=== PATIENT | male | born 1980 | race Caucasian/White ===

== ENCOUNTER → 2018-01-26 16:21 | Outpatient (CLI) | payer OTHER, SELFPAY ==
--- NOTE | 2018-01-26 16:36 | RAD_ITS ---
STUDY: X-RAY - PELVIS REASON FOR EXAM: Male, 37 years old. Rheumatoid arthritis. TECHNIQUE: One view of the pelvis was obtained. COMPARISON: Radiograph of the pelvis and left hip dated February 24, 2012 FINDINGS: There is a non-specific bowel gas pattern. Normal visualized soft tissue structures. The sacrum is obscured by bowel gas. Normal visualized bilateral superior and inferior pubic rami. Normal pubic symphysis. Normal ischial tuberosities. Normal visualized right femoral head. Normal right acetabulum. Normal right hip joint. Normal visualized left femoral head. Normal left acetabulum. Normal left hip joint. RAD/Pelvis 1 or 2 Views IMPRESSION: No radiographic evidence of acute fracture. Electronically Signed: Park Harris MD at 9:51 EDT , Service support ,
--- NOTE | 2018-01-26 16:36 | RAD_ITS ---
STUDY: X-RAY CHEST REASON FOR EXAM: Male, 37 years old. RA. Long-term drug therapy TECHNIQUE: PA and lateral views of the chest. COMPARISON: July 08, 2014 FINDINGS: The lungs are clear and expanded. There is no demonstrated pleural abnormality. Normal size heart. Normal mediastinum and ely. Normal visualized pulmonary arteries. Normal visualized aortic arch and descending thoracic aorta. Normal visualized thoracic spine. Normal visualized ribs, clavicles, and shoulders. There is no demonstrated abnormality of the visualized soft tissue structures of the upper abdomen. RAD/Chest PA and Lateral IMPRESSION: No acute cardiopulmonary process. Electronically Signed: Pham Nassar MD at 17:32 EDT Tel , Service support ,
[2018-01-26 17:34] LABS: Absolute Lymphocyte Count 2.55 X10^3/ul (0.83-4.51); Absolute Neutrophil Count 5.9 X10^3/uL (2.0-7.7); Basophil# 0.02 X10^3/uL; Basophil% 0.2 % (0-1); Eosinophil# 0.13 X10^3/uL; Eosinophils% 1.3 % (0-5); Hematocrit 41.8 % (40-54); Hemoglobin 14.8 g/dl (13.0-16.5); Lymphocyte # 2.55 X10^3/ul (4.0); Lymphocyte % 26.2 % (19-41); Mean Corp Hgb Conc 35.4 g/gl (32-36); Mean Corpuscular Hgb 29.3 pg (27.0-32.0); Mean Corpuscular Volume 82.8 fL (80-94); Mean Platelet Vol. 10.6 fl (6.2-12.0); Monocyte# 1.14 X10^3/uL; Monocyte% 11.7 % (0-10); Neutrophil # 5.87 X10^3/uL (2.7-7.7); Neutrophil % 60.3 % (47-70); Platelet Count 278 K/mm3 (150-450); RBC Distribution Width CV 13.1 % (11.6-14.6); RBC Distribution Width SD 38.9 fl (35.1-43.9); Red Blood Count 5.05 M/mm3 (4.6-6.2); White Blood Count 9.7 K/mm3 (4.4-11.0)
[2018-01-26 17:41] LABS: POSITIVE COUNT NO; POSITIVE DIFFERENTIAL NO; POSITIVE MORPHOLOGY NO
[2018-01-26 17:59] LABS: ALB/GLOB Ratio 1.4 RATIO (0.9-2.4); AST(SGOT) 59 U/L (15-37); Alanine Aminotransfer ALT/SGPT 61 U/L (16-61); Albumin, Serum 4.3 g/dL (3.2-5.0); Alkaline Phosphatase 58 U/L (45-117); Anion Gap 7 (5-15); BUN 17 mg/dL (7-18); BUN/Creat Ratio 12.2 RATIO (10-20); CRP 3.29 mg/L (0.0-3.0); Calcium,Total 8.7 mg/dL (8.5-10.1); Chloride 106 mmol/L (98-107); Creatinine, Serum 1.39 mg/dL (0.70-1.30); EST Glomerular Filtration Rate 61 mL/min (>60); Est Glom Filt Rate - Afr Amer 73 mL/min (>60); Globulin 3.1 g/dL (2.2-4.2); Glucose 92 mg/dL (74-106); Potassium 3.9 mmol/L (3.5-5.1); Protein, Total 7.4 g/dL (6.4-8.2); Rheumatoid Factor < 10.0 IU/mL (<15); Sodium Level 142 mmol/L (136-145)
[2018-01-26 18:05] LABS: Erythrocyte Sedimentation Rate < 1 mm/hr (0-15)
[2018-02-02 12:08] LABS: QNTFERON TB Ag Minus Nil Value < 0 IU/mL (.); QNTFERON TB Ag Value 0.06 IU/mL (.); QNTFERON TB Mitogen Value > 10.00 IU/mL (.); QNTFERON TB Nil Value 0.09 IU/mL (.)
[2018-02-03 10:39] LABS: CCP IgG Antibodies 5 units (0-19); HEPATITIS B SURFACE AG Negative (Negative); HLA B27 Negative (.); Hep B Surface Antibodies Reactive (.); Hep C Antibodies <0.1 s/co ratio (0.0-0.9); QNTIFERON TB Gold Negative (Negative)
== END ==
PROVIDERS: Visit Provider Internal Medicine Rheumatology
DX: M06.09 Rheumatoid arthritis without rheumatoid factor, multiple sites (principal); Z79.899 Other long term (current) drug therapy; M96.1 Postlaminectomy syndrome, not elsewhere classified; K76.0 Fatty (change of) liver, not elsewhere classified; Q21.0 Ventricular septal defect
CPT/HCPCS: 36415; 71046; 72170; 80053; 81374; 85025; 85652; 86140; 86200; 86431; 86480; 86706; 86803; 87340

== ENCOUNTER → 2018-04-24 08:24 | Outpatient (CLI) | payer OTHER, SELFPAY ==
--- NOTE | 2018-04-24 08:25 | RAD_ITS ---
STUDY: X-RAY - RIGHT SHOULDER REASON FOR EXAM: Chronic pain. TECHNIQUE: 3 view(s) of the shoulder. COMPARISON: None. FINDINGS: Normal glenohumeral articulation. Normal acromioclavicular joint. Normal acromion. Normal humeral head and visualized proximal humerus. The soft tissue structures are unremarkable. Normal visualized pulmonary apex. RAD/Shoulder min 2 Views IMPRESSION: Normal x-ray examination of the right shoulder. Electronically Signed: Tim Humphreys MD at 15:52 EDT Tel , Service support ,
== END ==
PROVIDERS: Family Provider Family Medicine; PCP Family Medicine; Visit Provider Orthopaedic Surgery
DX: M25.511 Pain in right shoulder (principal)
CPT/HCPCS: 73030

== ENCOUNTER → 2018-06-05 08:17 | Outpatient (CLI) | payer OTHER, SELFPAY ==
[2018-06-05 10:07] LABS: Absolute Lymphocyte Count 2.52 X10^3/ul (0.83-4.51); Absolute Neutrophil Count 3.8 X10^3/uL (2.0-7.7); Basophil# 0.02 X10^3/uL; Basophil% 0.3 % (0-1); Eosinophils% 1.3 % (0-5); Hematocrit 45.1 % (40-54); Hemoglobin 15.4 g/dl (13.0-16.5); Lymphocyte # 2.52 X10^3/ul (4.0); Lymphocyte % 33.5 % (19-41); Mean Corp Hgb Conc 34.1 g/gl (32-36); Mean Corpuscular Hgb 29.2 pg (27.0-32.0); Mean Corpuscular Volume 85.4 fL (80-94); Mean Platelet Vol. 9.7 fl (6.2-12.0); Monocyte# 1.08 X10^3/uL; Monocyte% 14.4 % (0-10); Neutrophil # 3.78 X10^3/uL (2.7-7.7); Neutrophil % 50.2 % (47-70); Platelet Count 270 K/mm3 (150-450); RBC Distribution Width CV 13.1 % (11.6-14.6); RBC Distribution Width SD 40.8 fl (35.1-43.9); Red Blood Count 5.28 M/mm3 (4.6-6.2); White Blood Count 7.5 K/mm3 (4.4-11.0)
[2018-06-05 10:20] LABS: POSITIVE COUNT NO; POSITIVE DIFFERENTIAL NO; POSITIVE MORPHOLOGY NO
[2018-06-05 10:29] LABS: ALB/GLOB Ratio 1.3 RATIO (0.9-2.4); AST(SGOT) 33 U/L (15-37); Alanine Aminotransfer ALT/SGPT 42 U/L (16-61); Albumin, Serum 4.1 g/dL (3.2-5.0); Alkaline Phosphatase 56 U/L (45-117); Anion Gap 8 (5-15); BUN 11 mg/dL (7-18); BUN/Creat Ratio 10.7 RATIO (10-20); Chloride 103 mmol/L (98-107); Creatinine, Serum 1.03 mg/dL (0.70-1.30); EST Glomerular Filtration Rate 86 mL/min (>60); Est Glom Filt Rate - Afr Amer 103 mL/min (>60); Globulin 3.2 g/dL (2.2-4.2); Glucose 68 mg/dL (74-106); Potassium 3.4 mmol/L (3.5-5.1); Protein, Total 7.3 g/dL (6.4-8.2); Sodium Level 140 mmol/L (136-145)
== END ==
PROVIDERS: Family Provider Family Medicine; PCP Family Medicine; Visit Provider Internal Medicine Rheumatology
DX: M06.09 Rheumatoid arthritis without rheumatoid factor, multiple sites (principal); Z79.899 Other long term (current) drug therapy; M96.1 Postlaminectomy syndrome, not elsewhere classified; K76.0 Fatty (change of) liver, not elsewhere classified; Q21.0 Ventricular septal defect
CPT/HCPCS: 36415; 80053; 85025

== ENCOUNTER → 2018-08-28 16:53 | Outpatient (CLI) | payer SELFPAY ==
[2018-08-28 18:32] LABS: Absolute Neutrophil Count 4.9 X10^3/uL (2.0-7.7); Basophil# 0.02 X10^3/uL; Basophil% 0.2 % (0-1); Eosinophils% 1.1 % (0-5); Hematocrit 43.5 % (40-54); Hemoglobin 15.1 g/dl (13.0-16.5); Lymphocyte % 29.8 % (19-41); Mean Corp Hgb Conc 34.7 g/gl (32-36); Mean Corpuscular Hgb 29.3 pg (27.0-32.0); Mean Corpuscular Volume 84.5 fL (80-94); Mean Platelet Vol. 10.6 fl (6.2-12.0); Monocyte# 1.06 X10^3/uL; Monocyte% 12.1 % (0-10); Neutrophil # 4.93 X10^3/uL (2.7-7.7); Neutrophil % 56.6 % (47-70); Platelet Count 286 K/mm3 (150-450); RBC Distribution Width CV 12.7 % (11.6-14.6); RBC Distribution Width SD 38.5 fl (35.1-43.9); Red Blood Count 5.15 M/mm3 (4.6-6.2); White Blood Count 8.7 K/mm3 (4.4-11.0)
[2018-08-28 18:37] LABS: POSITIVE COUNT NO; POSITIVE DIFFERENTIAL NO; POSITIVE MORPHOLOGY NO
[2018-08-28 18:58] LABS: ALB/GLOB Ratio 1.4 RATIO (0.9-2.4); AST(SGOT) 32 U/L (15-37); Alanine Aminotransfer ALT/SGPT 37 U/L (16-61); Albumin, Serum 4.3 g/dL (3.2-5.0); Alkaline Phosphatase 53 U/L (45-117); Anion Gap 11 (5-15); BUN 17 mg/dL (7-18); BUN/Creat Ratio 17.6 RATIO (10-20); Calcium,Total 8.9 mg/dL (8.5-10.1); Chloride 104 mmol/L (98-107); Creatinine, Serum 0.97 mg/dL (0.70-1.30); EST Glomerular Filtration Rate 92 mL/min (>60); Est Glom Filt Rate - Afr Amer 111 mL/min (>60); Glucose 77 mg/dL (74-106); Potassium 3.7 mmol/L (3.5-5.1); Protein, Total 7.3 g/dL (6.4-8.2); Sodium Level 142 mmol/L (136-145)
--- OUTSIDE RECORDS SUMMARY | 2018-10-14 23:44 | XMS RPT_ITS ---
:1980 Author Organization OHIP Care Team Providers Name Role Phone Corrina Gates Attending Unavailable Corrina Gates Referring Unavailable Deion Clark Primary Care Unavailable Corrina Gates Attending Unavailable Corrina Gates Referring Unavailable Deion Clark Primary Care Unavailable Emilia Tomlinson Attending Unavailable Emilia Tomlinson Referring Unavailable Deion Clark Primary Care Unavailable Emilia Tomlinson Attending Unavailable Primay Care Physicia, No Referring Unavailable Primay Care Physicia, No Primary Care Unavailable Corrina Gates Attending Unavailable Corrina Gates Referring Unavailable Primay Care Physicia, No Primary Care Unavailable Selma Mcclelland Attending Unavailable German eBal Attending Unavailable PROBLEMS PROBLEMS DATE TYPE CONDITION / CODE ATTENDING STATUS SOURCE 06/05/2018 Unknown M06.09 - Rheumatoid [place], Active [place] arthritis without [facility] rheumatoid factor, Hospital multiple sites / Repository M06.09(ICD-10) 06/05/2018 Unknown Z79.899 - Other long [place], Active [place] term (current) drug [facility] therapy / Hospital Z79.899(ICD-10) Repository 06/05/2018 Unknown M96.1 - [place], Active [place] Postlaminectomy [facility] syndrome, not Hospital elsewhere classified Repository / M96.1(ICD-10) 06/05/2018 Unknown K76.0 - Fatty [place], Active [place] (change of) liver, [facility] not [facility] classified / Repository K76.0(ICD-10) 06/05/2018 Unknown Q21.0 - Ventricular [place], Active [place] septal defect / [facility] Q21.0(ICD-10) Hospital Repository 04/24/2018 Unknown M25.511 - Pain in [place], Active [place] right shoulder / [facility] M25.511(ICD-10) Hospital Repository 04/24/2018 Unknown M75.41 - Impingement [place], Active [place] syndrome of right [facility] shoulder / Hospital M75.41(ICD-10) Repository 11/12/2017 Admitting Unknown / Nba Mcclelland Medical diagnosis UNK(Unknown) [facility] PROCEDURES PROCEDURES No Procedure Records FoundRESULTS RESULTS CBC W/DIFF, AUTOMATED Collected: 08/28/2018 Status: F Source: [place] 5:00 PM [facility] REPOSITORY TYPE CODE TESTS RESULT OUT OF RANGE REFERENCE UNITS LAB L100.1000 4.4-11.0 K/mm3 Normal WBC 8.7 LAB L100.1200 4.6-6.2 M/mm3 Normal RBC 5.15 LAB L100.1300 13.0-16.5 g/dl Normal HGB 15.1 LAB L100.1400 40-54 % Normal HCT 43.5 LAB L100.1500 80-94 fL Normal MCV 84.5 LAB L100.1600 27.0-32.0 pg Normal MCH 29.3 LAB L100.1700 32-36 g/gl Normal MCHC 34.7 LAB L100.1810 11.6-14.6 % Normal RDW CV 12.7 LAB L100.1820 35.1-43.9 fl Normal RDW SD 38.5 LAB L100.1900 150-450 K/mm3 Normal PLT 286 LAB L100.2000 6.2-12.0 fl Normal MPV 10.6 LAB L100.2100 47-70 % Normal NEUT% 56.6 LAB L100.2200 19-41 % Normal LY% 29.8 LAB L100.2300 0-10 % High MONO% 12.1 LAB L100.2400 0-5 % Normal EO% 1.1 LAB L100.2500 0-1 % Normal BASO% 0.2 LAB L100.2550 0.0-0.9 % Normal IM GRAN % 0.200 Result Comment: IG% - Immature Granulocytes (promyelocytes, myelocytes and metamyelocytes) > 1% indicates that a LEFT SHIFT is Present. LAB L100.2620 2.0-7.7 X10 3/uL Normal Absolute Neut 4.9 LAB L100.2720 0.83-4.51 X10 3/ul Normal Absolute Lymph 2.60 Performed By: #### L100.0100 #### [facility] [address] [place], [place], [address] COMPREHENSIVE METABOLIC Collected: 08/28/2018 Status: F Source: [facility] 5:[address] [facility] REPOSITORY TYPE CODE TESTS RESULT OUT OF RANGE REFERENCE UNITS LAB L501.0100 74-106 mg/dL Normal GLU 77 Result Comment: Please note revised GLUCOSE reference range effective 2017. LAB L501.1000 7-18 mg/dL Normal BUN 17 LAB L501.1100 0.70-1.30 mg/dL Normal CREAT,SERUM 0.97 Result Comment: The validity of the calculated GFR AND GFRAA in patients over 70 years has not been determined. Clinical correlation is essential. LAB L501.1110 >60 mL/min Normal EST GFR 92 Result Comment: Non- GFR Calc LAB L501.1115 >60 mL/min Normal EST GFR - AA 111 Result Comment: GFR Calc LAB L501.1300 10-20 RATIO Normal BUN/CRE 17.6 LAB L501.1500 6.4-8.2 g/dL T Normal PROT 7.3 LAB L501.1800 3.2-5.0 g/dL Normal ALB 4.3 LAB L501.1950 2.2-4.2 g/dL Normal GLOB 3.0 LAB L501.2000 0.9-2.4 RATIO Normal A/G 1.4 LAB L501.2200 8.5-10.1 mg/dL CA Normal 8.9 LAB L501.4100 15-37 U/L Normal AST 32 LAB L501.4305 45-117 U/L Normal ALK P 53 LAB L501.4405 16-61 U/L Normal ALT 37 LAB L501.4600 0.20-1.00 mg/dL T Normal BILI 0.60 LAB L501.5300 136-145 mmol/L NA Normal 142 LAB L501.5600 3.5-5.1 mmol/L K Normal 3.7 LAB L501.5900 98-107 mmol/L CL Normal 104 LAB L501.6100 21.0-32.0 mmol/L Normal CO2 27.0 LAB L501.6200 5-15 Normal GAP 11 Performed By: #### L500.4050 #### [facility] [address] [place] [address]. [place], [place], [id number] CBC Collected: 08/17/2018 Status: F Source: [facility] 3:33 PM [facility] REPOSITORY TYPE CODE TESTS RESULT OUT OF REFERENCE UNITS RANGE LAB WBC(LOINC) 4.50-10.80 10 3/mcL WBC 9.30 LAB RBCCT(LOINC 4.50-6.00 10 6/mcL ) RBC 5.44 LAB HGB(LOINC) 13.0-17.5 G/dL Hgb 16.1 LAB HCT(LOINC) 40.0-52.0 % Hct 47.1 LAB MCV(LOINC) 81.0-100.0 fL MCV 86.6 LAB MCH(LOINC) 27.0-33.0 pg MCH 29.5 LAB MCHC(LOINC) 32.0-36.0 G/dL MCHC 34.1 LAB RDW(LOINC) 11.5-15.5 % RDW 13.0 LAB PLT(LOINC) 150-450 10 3/mcL Platelet 277 LAB MPV(LOINC) 6.4-10.5 fL MPV 10.1 Performed By: #### CBCPJ, ANEU #### [place] [address] .AUTO DIFF Collected: 08/17/2018 Status: F Source: [facility] 3:33 PM [facility] REPOSITORY TYPE CODE TESTS RESULT OUT OF REFERENCE UNITS RANGE LAB SALMA(LOINC) 50.0-75.0 % Neutrophil % 54.3 LAB LYM(LOINC) 20.0-40.0 % Lymphocyte % 33.1 LAB MON(LOINC) 2.0-13.0 % Monocyte % 10.2 LAB EO(LOINC) 0.0-6.0 % Eosinophil % 1.6 LAB BAS(LOINC) 0.0-2.5 % Basophil % 0.8 LAB ABLYM(LOIN 0.90-4.32 10 3/mcL C) Lymphocyte, 3.10 Absolute LAB RUTH(LOINC 0.09-1.40 10 3/mcL ) Monocyte, 0.90 Absolute LAB AEOS(LOINC 0.00-0.65 10 3/mcL ) Eosinophil, 0.10 Absolute LAB ABAS(LOINC 0.00-0.27 10 3/mcL ) Basophil, 0.10 Absolute Performed By: #### PJ SAVAGE, ANEU #### [place] [address] .NEUABS Collected: 08/17/2018 Status: F Source: [facility] 3:33 PM [facility] REPOSITORY TYPE CODE TESTS RESULT OUT OF REFERENCE UNITS RANGE LAB ANEU(LOINC) 2.25-8.10 10 3/mcL Neutrophil, 5.00 Absolute Performed By: #### CBCPJ, ANEU #### [place] [address] CBC W/DIFF, AUTOMATED Collected: 06/05/2018 Status: F Source: [place] 8:[address] [facility] REPOSITORY TYPE CODE TESTS RESULT OUT OF RANGE REFERENCE UNITS LAB L100.1000 4.4-11.0 K/mm3 Normal WBC 7.5 LAB L100.1200 4.6-6.2 M/mm3 Normal RBC 5.28 LAB L100.1300 13.0-16.5 g/dl Normal HGB 15.4 LAB L100.1400 40-54 % Normal HCT 45.1 LAB L100.1500 80-94 fL Normal MCV 85.4 LAB L100.1600 27.0-32.0 pg Normal MCH 29.2 LAB L100.1700 32-36 g/gl Normal MCHC 34.1 LAB L100.1810 11.6-14.6 % Normal RDW CV 13.1 LAB L100.1820 35.1-43.9 fl Normal RDW SD 40.8 LAB L100.1900 150-450 K/mm3 Normal PLT 270 LAB L100.2000 6.2-12.0 fl Normal MPV 9.7 LAB L100.2100 47-70 % Normal NEUT% 50.2 LAB L100.2200 19-41 % Normal LY% 33.5 LAB L100.2300 0-10 % High MONO% 14.4 LAB L100.2400 0-5 % Normal EO% 1.3 LAB L100.2500 0-1 % Normal BASO% 0.3 LAB L100.2550 0.0-0.9 % Normal IM GRAN % 0.300 Result Comment: IG% - Immature Granulocytes (promyelocytes, myelocytes and metamyelocytes) > 1% indicates that a LEFT SHIFT is Present. LAB L100.2620 2.0-7.7 X10 3/uL Normal Absolute Neut 3.8 LAB L100.2720 0.83-4.51 X10 3/ul Normal Absolute Lymph 2.52 Performed By: #### L100.0100 #### [facility] [address] [facility] [place], [address] COMPREHENSIVE METABOLIC Collected: 06/05/2018 Status: F Source: [facility] 8:[address] [facility] REPOSITORY TYPE CODE TESTS RESULT OUT OF RANGE REFERENCE UNITS LAB L501.0100 74-106 mg/dL Low GLU 68 Result Comment: Please note revised GLUCOSE reference range effective 2017. LAB L501.1000 7-18 mg/dL Normal BUN 11 LAB L501.1100 0.70-1.30 mg/dL Normal CREAT,SERUM 1.03 Result Comment: The validity of the calculated GFR AND GFRAA in patients over 70 years has not been determined. Clinical correlation is essential. LAB L501.1110 >60 mL/min Normal EST GFR 86 Result Comment: Non- GFR Calc LAB L501.1115 >60 mL/min Normal EST GFR - AA 103 Result Comment: GFR Calc LAB L501.1300 10-20 RATIO Normal BUN/CRE 10.7 LAB L501.1500 6.4-8.2 g/dL T Normal PROT 7.3 LAB L501.1800 3.2-5.0 g/dL Normal ALB 4.1 LAB L501.1950 2.2-4.2 g/dL Normal GLOB 3.2 LAB L501.2000 0.9-2.4 RATIO Normal A/G 1.3 LAB L501.2200 8.5-10.1 mg/dL CA Normal 9.0 LAB L501.4100 15-37 U/L Normal AST 33 LAB L501.4305 45-117 U/L Normal ALK P 56 LAB L501.4405 16-61 U/L Normal ALT 42 LAB L501.4600 0.20-1.00 mg/dL T Normal BILI 0.90 LAB L501.5300 136-145 mmol/L NA Normal 140 LAB L501.5600 3.5-5.1 mmol/L Low K 3.4 LAB L501.5900 98-107 mmol/L CL Normal 103 LAB L501.6100 21.0-32.0 mmol/L Normal CO2 29.0 LAB L501.6200 5-15 Normal GAP 8 Performed By: #### L500.4050 #### [facility] [address] [facility]. [place], [place], [address] FINGER LEFT Observed: 05/05/2018 Status: F Source: [facility] 2:26 PM [facility] REPOSITORY FINGER LEFT Ordering Physician: German Beal MD 05/05/2018 3:39 PM LEFT THIRD DIGIT THREE VIEWS Clinical Statement: Pain Comparison: None FINDINGS: There is an avulsion fracture arising from the radial base of the third distal phalanx with adjacent soft tissue swelling. The remainder of the visualized osseous structures are intact. There is no dislocation. IMPRESSION: Avulsion fracture at the base of the third distal phalanx. ---- Electronic Signature on File ---- Signed By: Yuliana Baker MD [email or web address] Dictated: 05/05/2018 4:34 PM Signed: 05/05/2018 4:35 PM Reported By: YULIANA BAKER M.D. Signed By: YULIANA BAKER M.D. JS Observed: 05/05/2018 Status: UNK Source: [facility] 2:26 PM [facility] REPOSITORY DATE OF SERVICE: 05/05/2018 CHIEF COMPLAINT: Laceration to the left long finger. HISTORY: This 37-year-old caught his left long finger between a rotating belt and the machine sustaining a laceration of the finger. PAST MEDICAL HISTORY: Remarkable for rheumatoid arthritis. CURRENT MEDICATIONS: 1. Enbrel. 2. Plaquenil. ALLERGIES: PENICILLIN WHICH WAS A CHILDHOOD ISSUE. PHYSICAL EXAMINATION: He rates his discomfort as 8/10. The exam was limited to the left hand. There is a 1.5-cm laceration of the pad of the finger. It gapes about 3 mm. There is a separate blowout-type injury noted at the base of the cuticle, and the proximal portion of the nail has been pulled away, probably from the friction of the belt, splitting the nail partially at mid-level. There is no injury to the nailbed itself. PROCEDURE: The wound was anesthetized with 3 mL of 2% plain lidocaine. It was soaked thoroughly in saline for 10 minutes and irrigated in the course of this. After being draped in a sterile fashion, the wound was closed with 4 simple sutures of 5-0 Ethilon. The nail is in contact with the nailbed but loose enough to allow easy draining. The wound is dressed with bacitracin and gauze. He was fitted with appropriate Stax splint for protection of the finger. X-ray demonstrates a small chip fracture at the medial portion of the base of the distal phalanx. IMPRESSION: 1. Laceration of the left long finger. 2. Chip fracture of the left long finger distal phalanx. PLAN: Change the dressing daily. Keep it clean and dry. Keflex 500 t.i.d. for 7 days. Splint as needed for protection. He indicates his tetanus booster has been within 10 years and he thinks closer to 7 years. He will check on this with his primary care. Follow up in 10-14 days for suture removal or earlier if any difficulty with healing or appearance. German Beal MD [facility] PATIENT NAME: TONYA PORRAS Radha Hayward MEDICAL REC #: [id number] [place] [address] [facility] [facility] RE[facility] PHYSICIAN [id number] SSI File#: [id number] Verified/Reviewed by 05/09/[address] [facility] PATIENT NAME: TONYA PORRAS Radha Hayward MEDICAL REC #: [id number] [place] [address] [facility] RE[facility] PHYSICIAN ORTHOPEDIC VISIT Observed: 04/24/2018 Status: F Source: [place] REPORT 10:[address] [facility] REPOSITORY [facility] Orthopaedics AND Sports Medicine [facility] [address] [place] [address] OFFICE VISIT Date of Service: 04/24/18 MR#: [id number] Acct: [id number] Name: TONYA PORRAS Rep #: [id number] : 1980 Provider: Emilia Tomlinson DO Age/Sex: 37/M [place] [facility] [place] [place]: Signed Intake Intake Visit Reasons: RIGHT SHOULDER PAIN Medications hydroxychloroquine 200 mg tablet 200 mg PO ONCE tab 04/24/18 [History Confirmed 04/24/18] HPI RIGHT SHOULDER PAIN: Details: TONYA PORRAS is a 37 year old M here today for right shoulder pain. He has had pain for years but in january he was raking his entire yard and has had increase pain since. He has painful rom, decreased in all ranges. He has anterior pain and radiates all over. He has n/t in that arm from neck issues and has not noticed any increase or change in those symptoms. No recent xrays, injections or PT. He originally injured his shoulder pitching in 1998, and had an injection then. He has seen Dr Gore in the past for his back pain. ROS [facility] Reports as per HPI, Reports joint pain, Reports limited joint movement, Reports muscle weakness, Reports numbness, Reports tingling Neuro Yes numbness, Yes tingling Ortho Exam Right Shoulder Skin/Wound: Yes CDI Contralateral Normal: Yes Testing: Positive Hawkin's, AROM-External Rotation at side 0-60, empty can and TTP AC Joint; negative TTP Biceps or translation Internal Rotation: L5 SHOULDER: weak ER, pos obriens Assessment AND Plan 1. Subacromial impingement of right shoulder M75.41 Plan X-rays were reviewed. There is no obvious fracture, dislocation, or lucency noted. Educated the patient on the anatomy of the shoulder an etiology of his pain, he has impingement and weakness. Todays treatment option is injection and PT. See Dr Gore for his neck and if that fails we will order an MRI. Obtained consent for injection. Under sterile conditions, injected the patients right subacromial joint with a 10cc cocktail of 8cc bupivacaine and 2cc kenalog. The patient tolerated the injection well without any noted complication. Patient should call our office if redness develops, pain worsens or if they have any concerns. Follow up as needed if the injection fails or sooner if pain, swelling, numbness or associated symptoms, or concerns develop. All questions answered. Patient in agreement of plan. Orders Orders: Medications New: Plan Detail Other Orders Orders: Coding Level of Care Code Off vis,est,level 4 Diagnoses Subacromial impingement of right shoulder M75.41 04/24/18 1020 <Electronically signed by Emilia Tomlinson DO> Date Emilia Tomlinson DO Ann Marieign Signature: Date (if applicable) CC: SHOULDER MIN 2 VIEWS Observed: 04/24/2018 Status: F Source: [place] 8:[address] [facility] REPOSITORY [facility] Imaging Services [address] [place] [address] Shoulder min 2 Views MR#: [id number] Acct: [id number] Name: TONYA PORRAS Rep #: [id number] : 1980 M 37 From: Tim Humphreys MD PCP: DEION CLARK Status: REG CLI Study: Shoulder min 2 Views Date of Exam: 04/24/18 Exam# [id number] Ordering Dr: Emilia Tomlinson DO STUDY: X-RAY - RIGHT SHOULDER REASON FOR EXAM: Chronic pain. TECHNIQUE: 3 view(s) of the shoulder. COMPARISON: None. FINDINGS: Normal glenohumeral articulation. Normal acromioclavicular joint. Normal acromion. Normal humeral head and visualized proximal humerus. The soft tissue structures are unremarkable. Normal visualized pulmonary apex. RAD/Shoulder min 2 Views IMPRESSION: Normal x-ray examination of the right shoulder. Electronically Signed: Tim Humphreys MD at 15:52 EDT Tel , Service support , CC: Emilia Tomlinson DO; DEION CLARK Digital Media Planner: Signed CHEST PA AND LATERAL Observed: 01/26/2018 Status: F Source: [place] 4:37 PM [facility] REPOSITORY [facility] Imaging Services [address] [place] [address] Chest PA and Lateral MR#: [id number] Acct: [id number] Name: TONYA PORRAS Rep #: [id number] : 1980 M 37 From: Pham Nassar MD PCP: Care Physician, No Primary Status: REG CLI Study: Chest PA and Lateral Date of Exam: 01/26/18 Exam# [id number] Ordering Dr: Corrina Gates MD STUDY: X-RAY CHEST REASON FOR EXAM: Male, 37 years old. RA. Long-term drug therapy TECHNIQUE: PA and lateral views of the chest. COMPARISON: July 08, 2014 FINDINGS: The lungs are clear and expanded. There is no demonstrated pleural abnormality. Normal size heart. Normal mediastinum and ely. Normal visualized pulmonary arteries. Normal visualized aortic arch and descending thoracic aorta. Normal visualized thoracic spine. Normal visualized ribs, clavicles, and shoulders. There is no demonstrated abnormality of the visualized soft tissue structures of the upper abdomen. RAD/Chest PA and Lateral IMPRESSION: No acute cardiopulmonary process. Electronically Signed: Pham Nassar MD at 17:32 EDT Tel , Service support , CC: No Primary Care Physician; Corrina Gates MD Digital Media Planner: Signed PELVIS 1 OR 2 VIEWS Observed: 01/26/2018 Status: F Source: [place] 4:37 PM [facility] REPOSITORY [facility] Imaging Services [address] [place] [address] Pelvis 1 or 2 Views MR#: [id number] Acct: [id number] Name: TONYA PORRAS Preethi Rep #: [id number] : 1980 M 37 From: Park Harris MD PCP: Care Physician, No Primary Status: REG CLI Study: Pelvis 1 or 2 Views Date of Exam: 01/26/18 Exam# [id number] Ordering Dr: Corrina Gates MD STUDY: X-RAY - PELVIS REASON FOR EXAM: Male, 37 years old. Rheumatoid arthritis. TECHNIQUE: One view of the pelvis was obtained. COMPARISON: Radiograph of the pelvis and left hip dated February 24, 2012 FINDINGS: There is a non-specific bowel gas pattern. Normal visualized soft tissue structures. The sacrum is obscured by bowel gas. Normal visualized bilateral superior and inferior pubic rami. Normal pubic symphysis. Normal ischial tuberosities. Normal visualized right femoral head. Normal right acetabulum. Normal right hip joint. Normal visualized left femoral head. Normal left acetabulum. Normal left hip joint. RAD/Pelvis 1 or 2 Views IMPRESSION: No radiographic evidence of acute fracture. Electronically Signed: Park Harris MD at 9:51 EDT , Service support , CC: No Primary Care Physician; Corrina Gates MD Digital Media Planner: Signed CBC W/DIFF, AUTOMATED Collected: 01/26/2018 Status: F Source: [place] 4:[address] [facility] REPOSITORY TYPE CODE TESTS RESULT OUT OF RANGE REFERENCE UNITS LAB L100.1000 4.4-11.0 K/mm3 Normal WBC 9.7 LAB L100.1200 4.6-6.2 M/mm3 Normal RBC 5.05 LAB L100.1300 13.0-16.5 g/dl Normal HGB 14.8 LAB L100.1400 40-54 % Normal HCT 41.8 LAB L100.1500 80-94 fL Normal MCV 82.8 LAB L100.1600 27.0-32.0 pg Normal MCH 29.3 LAB L100.1700 32-36 g/gl Normal MCHC 35.4 LAB L100.1810 11.6-14.6 % Normal RDW CV 13.1 LAB L100.1820 35.1-43.9 fl Normal RDW SD 38.9 LAB L100.1900 150-450 K/mm3 Normal PLT 278 LAB L100.2000 6.2-12.0 fl Normal MPV 10.6 LAB L100.2100 47-70 % Normal NEUT% 60.3 LAB L100.2200 19-41 % Normal LY% 26.2 LAB L100.2300 0-10 % High MONO% 11.7 LAB L100.2400 0-5 % Normal EO% 1.3 LAB L100.2500 0-1 % Normal BASO% 0.2 LAB L100.2550 0.0-0.9 % Normal IM GRAN % 0.300 Result Comment: IG% - Immature Granulocytes (promyelocytes, myelocytes and metamyelocytes) > 1% indicates that a LEFT SHIFT is Present. LAB L100.2620 2.0-7.7 X10 3/uL Normal Absolute Neut 5.9 LAB L100.2720 0.83-4.51 X10 3/ul Normal Absolute Lymph 2.55 Performed By: #### L100.0100, L101.9900 #### [facility] [address] [place], [place], [id number] ERYTHROCYTE SED RATE Collected: 01/26/2018 Status: F Source: [place] 4:[address] [facility] REPOSITORY TYPE CODE TESTS RESULT OUT OF RANGE REFERENCE UNITS LAB L102.0000 0-15 mm/hr Normal SED RATE < 1 Performed By: #### L100.0100, L101.9900 #### [facility] [address] [place], [address] COMPREHENSIVE METABOLIC Collected: 01/26/2018 Status: F Source: [facility] 4:[address] [facility] REPOSITORY TYPE CODE TESTS RESULT OUT OF RANGE REFERENCE UNITS LAB L501.0100 74-106 mg/dL Normal GLU 92 Result Comment: Please note revised GLUCOSE reference range effective 2017. LAB L501.1000 7-18 mg/dL Normal BUN 17 LAB L501.1100 0.70-1.30 mg/dL High CREAT,SERUM 1.39 Result Comment: The validity of the calculated GFR AND GFRAA in patients over 70 years has not been determined. Clinical correlation is essential. LAB L501.1110 >60 mL/min Normal EST GFR 61 Result Comment: Non- GFR Calc LAB L501.1115 >60 mL/min Normal EST GFR - AA 73 Result Comment: GFR Calc LAB L501.1300 10-20 RATIO Normal BUN/CRE 12.2 LAB L501.1500 6.4-8.2 g/dL T Normal PROT 7.4 LAB L501.1800 3.2-5.0 g/dL Normal ALB 4.3 LAB L501.1950 2.2-4.2 g/dL Normal GLOB 3.1 LAB L501.2000 0.9-2.4 RATIO Normal A/G 1.4 LAB L501.2200 8.5-10.1 mg/dL CA Normal 8.7 LAB L501.4100 15-37 U/L High AST 59 LAB L501.4305 45-117 U/L Normal ALK P 58 LAB L501.4405 16-61 U/L Normal ALT 61 LAB L501.4600 0.20-1.00 mg/dL T Normal BILI 0.50 LAB L501.5300 136-145 mmol/L NA Normal 142 LAB L501.5600 3.5-5.1 mmol/L K Normal 3.9 LAB L501.5900 98-107 mmol/L CL Normal 106 LAB L501.6100 21.0-32.0 mmol/L Normal CO2 29.0 LAB L501.6200 5-15 Normal GAP 7 Performed By: #### L500.4050, L501.6710, L505.7010 #### [facility] [address] [place], [address] CRP Collected: 01/26/2018 Status: F Source: [place] 4:[address] [facility] REPOSITORY TYPE CODE TESTS RESULT OUT OF RANGE REFERENCE UNITS LAB L501.6710 0.0-3.0 mg/L High 3.29 C-REACTIVE PROT Result Comment: C-Reactive Protein (CRP) provides useful information for the diagnosis, therapy and monitoring of inflammatory processes and associated diseases. For the evaluation of Relative Risk for Cardiovascular Disease, a High Sensitivity CRP (HSCRP) should be ordered. Performed By: #### L500.4050, L501.6710, L505.7010 #### [facility] [address] [place], [place], [address] RHEUMATOID FACTOR Collected: 01/26/2018 Status: F Source: [place] 4:[address] [facility] REPOSITORY TYPE CODE TESTS RESULT OUT OF RANGE REFERENCE UNITS LAB L505.7010 <15 IU/mL Normal RHEUMATOID FAC < 10.0 Performed By: #### L500.4050, L501.6710, L505.7010 #### [facility] [address] [place], [place], [address] HEPATITIS B SURFACE Collected: 01/26/2018 Status: F Source: [place] [facility] 4:[address] [facility] REPOSITORY TYPE CODE TESTS RESULT OUT OF RANGE REFERENCE UNITS LAB L3100.0400 Negative Normal HB Negative SURF AG Result Comment: Performed at: - [facility] [id number] Rolling Machine Operator Automatic: Quoc Heath PhD, Phone: [phone] Performed at: - [facility] [id number] Rolling Machine Operator Automatic: Calos Bower PhD, Phone: [phone] Performed at: - [facility] [id number] Rolling Machine Operator Automatic: Collin Rush MD, Phone: [phone] Performed By: #### L3100.0390, L3100.0528, L3100.0625, L3400.7000, L3410.1400, L4600.0100 #### [facility] (refer to report for specific site) refer to report for address and phone number HEP B SURFACE Collected: 01/26/2018 Status: F Source: [place] 4:[address] [facility] REPOSITORY TYPE CODE TESTS RESULT OUT OF RANGE REFERENCE UNITS LAB L3100.0528 . Normal Hep B Reactive Lucas AB Result Comment: Non Reactive: Inconsistent with immunity, less than 10 mIU/mL Reactive: Consistent with immunity, greater than 9.9 mIU/mL Performed By: #### L3100.0390, L3100.0528, L3100.0625, L3400.7000, L3410.1400, L4600.0100 #### [facility] (refer to report for specific site) refer to report for address and phone number HEPATITIS C ANTIBODIES Collected: 01/26/2018 Status: F Source: [place] 4:[address] [facility] REPOSITORY TYPE CODE TESTS RESULT OUT OF RANGE REFERENCE UNITS LAB L3100.0650 0.0-0.9 s/co ratio Normal HEP C AB <0.1 Result Comment: Negative: < 0.8 Indeterminate: 0.8 - 0.9 Positive: > 0.9 The CDC recommends that a positive HCV antibody result be followed up with a HCV Nucleic Acid Amplification test (541741). Performed By: #### L3100.0390, L3100.0528, L3100.0625, L3400.7000, L3410.1400, L4600.0100 #### [facility] (refer to report for specific site) refer to report for address and phone number QUANTIFERON TB-GOLD Collected: 01/26/2018 Status: F Source: [place] 4:[address] [facility] REPOSITORY TYPE CODE TESTS RESULT OUT OF RANGE REFERENCE UNITS LAB L3400.7025 Negative Normal QFT Negative TB GOLD Result Comment: The specimen received for QuantiFERON testing was incubated by the ordering institution. Specific procedures outlined in our Directory of Services and in the package insert for the QuantiFERON Gold (In Tube) test must be followed to enable for proper stimulation of cells for the production of interferon gamma. LAB L3400.7035 . Normal QFT TB Comment POS CRIT Result Comment: To be considered positive a specimen should have a TB Ag minus Nil value greater than or equal to 0.35 IU/mL and in addition the TB Ag minus Nil value must be greater than or equal to 25% of the Nil value. There may be insufficient information in these values to differentiate between some negative and some indeterminate test values. LAB L3400.7045 . IU/mL Normal QFT TB AB 0.06 VALUE LAB L3400.7055 . IU/mL Normal QFT NIL VALUE 0.09 LAB L3400.7065 . IU/mL > Normal QFT MITOGEN 10.00 ALTAGRACIA LAB L3400.7075 . IU/mL < Normal QFT AG - NIL 0 LAB L3400.7085 . Normal QFT TB INTER Comment Result Comment: The QuantiFERON TB Gold (in Tube) assay is intended for use as an aid in the diagnosis of TB infection. Negative results suggest that there is no TB infection. In patients with high suspicion of exposure, a negative test should be repeated. A positive test indicates infection with Mycobacterium tuberculosis. Among individuals without tuberculosis infection, a positive test may be due to exposure to M. kansasii, M. szulgai or M. marinum. On the Internet, go to cdc.gov/tb for further details. Performed By: #### L3100.0390, L3100.0528, L3100.0625, L3400.7000, L3410.1400, L4600.0100 #### [facility] (refer to report for specific site) refer to report for address and phone number HLA B27 Collected: 01/26/2018 Status: F Source: [place] 4:[address] [facility] REPOSITORY TYPE CODE TESTS RESULT OUT OF RANGE REFERENCE UNITS LAB L3410.1500 . Normal HLA Negative B27 Result Comment: HLA-B*27 Negative B27 allele interpretation for all loci based on IMGT/HLA database version 3.27 This test was developed and its performance characteristics determined by [facility]. It has not been cleared or approved by the Food and Drug Administration. [facility] Lab CLIA ID Number [id number] This test was performed using PCR (Polymerase Chain Reaction)/SSOP (Sequence Specific Oligonucleotide Probes) technique. SBT (Sequence Based Typing) and/or SSP (Sequence Specific Primers) may be used as supplemental methods when necessary. Please contact [facility] Customer Service at if you have any questions. Director of HLA Laboratory Dr Calos Bower, PhD Performed By: #### L3100.0390, L3100.0528, L3100.0625, L3400.7000, L3410.1400, L4600.0100 #### [facility] (refer to report for specific site) refer to report for address and phone number CCP IGG ANTIBODIES Collected: 01/26/2018 Status: F Source: [place] 4:[address] [facility] REPOSITORY TYPE CODE TESTS RESULT OUT OF RANGE REFERENCE UNITS LAB L4600.0100 0-19 units Normal ANTI-CCP 5 [id number] Result Comment: Negative <20 Weak positive 20 - 39 Moderate positive 40 - 59 Strong positive >59 Performed By: #### L3100.0390, L3100.0528, L3100.0625, L3400.7000, L3410.1400, L4600.0100 #### [facility] (refer to report for specific site) refer to report for address and phone number SC Observed: 11/12/2017 Status: UNK Source: [facility] 2:11 PM [facility] REPOSITORY DATE OF SERVICE: 11/12/2017 I have seen and evaluated this patient under Dr. Waggoner's supervision. CHIEF COMPLAINT: Sore throat. HISTORY OF PRESENT ILLNESS: This 37-year-old male presented to [facility] with a sore throat. The patient states his symptoms started Monday. He has had a scratchy sore throat that has progressively gotten worse. It is worse with swallowing. He denies any rhinorrhea, congestion, cough. He denies any difficulty breathing or swallowing. He has felt a little achy, but has not noticed any fevers or chills. He presents here for further evaluation. PAST MEDICAL HISTORY: Reviewed. ALLERGIES: INCLUDE PENICILLIN AND ASPIRIN. MEDICATIONS: He is not on any medications regularly. PHYSICAL EXAMINATION: Vital Signs: Blood pressure 125/79, pulse 74, respirations 16, temperature 98.8, pulse oximetry 98%. General: This is a very pleasant male sitting comfortably on exam, but appearing in no acute distress. He is alert and oriented x3 without any difficulty. HEENT: Head is normocephalic. Pupils are equally round and reactive to light with accommodation. Sclerae clear. Conjunctivae pink. Extraocular movements are intact bilaterally. Ear canals are without erythema or debris. Tympanic membrane have a good cone of light without erythema or effusions bilaterally. Oral mucosa pink and moist. Posterior pharynx is erythematous. There is no tonsillar hypertrophy or exudate. No uvular deviation. The airway is with symmetry. Neck: Supple. He has tonsillar lymphadenopathy bilaterally. There is no stridor. He is not drooling. Heart: Regular rate and rhythm. Lungs: Clear to auscultation bilaterally. At this time, I suspect an acute pharyngitis. He has been given a dose of Decadron here. I placed him on Zithromax. He is to follow up for recheck to ensure complete resolution of his symptoms. He has been given appropriate primary care physician referrals. Patient is agreement to assessment and plan. Was asked to return if new concerns. IMPRESSION: Acute pharyngitis. Selma Mcclelland PA-C, dictating for [facility] PATIENT NAME: TONYA PORRAS Dr. MEDICAL REC #: [id number] [place] [address] [facility] REPORT STAT[facility]ARE PHYSICIAN Brian Waggoner MD [id number] SSI File#: [id number] Verified/Reviewed by 11/21/[address] [facility] PATIENT NAME: TONYA PORRAS Dr. MEDICAL REC #: [id number] [place] [address] [facility] REPORT STATCARE PHYSICIAN ALLERGIES ALLERGIES No Allergies Records FoundENCOUNTERS ENCOUNTERS ADMIT/DISCHARGE ACCOUNT ADMITTING ENCOUNTER LOCATION SOURCE NUMBER [facility] 08/28/2018 [id number] Ambulatory [place] [facility] ing:MTLAB Repository 06/05/2018 [id number] Ambulatory [place] [facility] ing:MTLAB Repository 05/05/2018 [id number] Ambulatory [address] gBLAYNE Repository 04/24/2018 [id number] Ambulatory [place] 0 [facility] ing:HPRAD Repository 04/24/2018/ [id number] Ambulatory BMSBuilding:B [place] 8 1 [facility] Repository 01/26/2018 [id number] Ambulatory [place] 8 [facility] ing:MTLAB Repository 11/12/2017 [id number] Ambulatory [facility] Medical [facility] 8 [facility] g:H.HI Repository PAYERS PAYERS ENCOUNTER GUARANTOR PAYER SUBSCRIBER SOURCE 08/28/2018 TONYA A Primary NOT GIVENUNK [place] [id number] Insurance:SELF PAY [place], [place] Number: Effective Repository [id number]: (330) Date:2018-08-28 [phone] (HP) 06/05/2018 TONYA A Primary TONYA A [place] [id number] O[address] Insurance:AETNAPolicy WRIGHTDOB: [place], [place] Number: [id number] [address]Aaq: (330) [id number] Repository [phone] (HP) Date:2778-94-55AY [id number] [place]UAN [place]TE[place] [address]XH: 06/05/2018 Secondary NOT GIVENUNK [place] Insurance:SELF PAY [facility] Number: Effective Repository Date:2018-06-05 05/05/2018 TONYA A Primary TONYA A [facility] Medical [id number] [place] Number: [id number]: (330) [id number] (HP) Date:3048-63-26CL [id number] JUAN Cortez [address]QD: 04/24/2018 TONYA A Primary TONYA A [place] [id number] OLD Insurance:AETNAPolicy WRIGHTDOB: [place], [place] Number: [id number] Hospital [address]Ejw: (330) [id number] Repository [phone] (HP) Date:6233-53-60FQ [id number] JU[place] CORTE[place] [address]OW: 04/24/2018 Secondary NOT GIVENUNK [place] Insurance:SELF PAY [facility] Number: Effective Repository Date:2018-04-24 04/24/2018 TONYA A Primary TONYA Amador [id number] OLD Insurance:AETNAPolicy WRIGHTDOB: [place], [place] Number: [id number] [facility] [address]Umu: 330 [id number] Repository [phone] () Date:3890-00-86LG [id number] JUAN [place]TE[place] [address]XU: 04/24/2018 Secondary NOT GIVENUNK [place] Insurance:SELF PAY [facility] Number: Effective Repository Date:2018-04-24 01/26/2018 TONYA A Primary TONYA A [place] [id number] OLD Insurance:AETNAPolicy WRIGHTDOB: [place], [place] Number: [id number] Hospital [address]Kyc: 330 [id number] Repository [phone] () Date:7018-57-04UH [address] [place] [address]MM: 01/26/2018 Secondary NOT GIVENUNK [place] Insurance:SELF PAY [facility] Number: Effective Repository Date:2018-01-26 11/12/2017 TONYA A Primary TONYA [facility] [id number] OLD Insurance:[place]ANNABEL [place] CHOICE POSPolicy Repository [address]Ifb: (330) Number: [phone] () [id number] Date:7297-35-59HR [address] [place] [address]LB:
== END ==
PROVIDERS: Family Provider Family Medicine; PCP Family Medicine; Referring Provider Internal Medicine Rheumatology; Visit Provider Internal Medicine Rheumatology
DX: M06.09 Rheumatoid arthritis without rheumatoid factor, multiple sites (principal); Z79.899 Other long term (current) drug therapy; M96.1 Postlaminectomy syndrome, not elsewhere classified; K76.0 Fatty (change of) liver, not elsewhere classified; Q21.0 Ventricular septal defect
CPT/HCPCS: 36415; 80053; 85025

== ENCOUNTER → 2021-08-31 09:42 | Outpatient (CLI) | payer OTHER, SELFPAY ==
--- NOTE | 2021-08-31 09:51 | RAD_ITS ---
STUDY: X-RAY CHEST REASON FOR EXAM: Male, 41 years old. PAIN TECHNIQUE: PA and lateral views of the chest. COMPARISON: Comparison is made with prior study dated 01/26/2018. FINDINGS: The lungs are clear and expanded. There is no demonstrated pleural abnormality. Normal size heart. Normal mediastinum and ely. Normal visualized pulmonary arteries. Normal visualized aortic arch and descending thoracic aorta. Normal visualized thoracic spine. Normal visualized ribs, clavicles, and shoulders. There is no demonstrated abnormality of the visualized soft tissue structures of the upper abdomen. RAD/Chest PA and Lateral IMPRESSION: Normal x-ray examination of the chest. Electronically Signed: Zia Evans MD at 15:41 EST , Service support ,
[2021-08-31 12:09] LABS: Erythrocyte Sedimentation Rate 3 mm/hr (0-20)
[2021-08-31 12:11] LABS: Absolute Lymphocyte Count 1.78 X10^3/uL (0.83-4.51); Basophil# 0.02 X10^3/uL; Basophil% 0.2 % (0-1); Eosinophil# 0.26 X10^3/uL; Eosinophils% 2.8 % (0-5); Hematocrit 45.2 % (40-54); Hemoglobin 15.6 g/dL (13.0-16.5); Lymphocyte # 1.78 X10^3/ul (0.83-4.51); Lymphocyte % 19.2 % (19-41); Mean Corp Hgb Conc 34.5 g/dL (32-36); Mean Corpuscular Hgb 29.4 pg (27.0-32.0); Mean Corpuscular Volume 85.3 fL (80-94); Mean Platelet Vol. 10.7 fl (6.2-12.0); Monocyte# 1.14 X10^3/uL; Monocyte% 12.3 % (0-10); NRBC Flagged by Analyzer 0 % (0-5); Neutrophil # 6.04 X10^3/uL (2.7-7.7); Platelet Count 276 K/mm3 (150-450); RBC Distribution Width CV 12.4 % (11.6-14.6); RBC Distribution Width SD 38.2 fl (35.1-43.9); White Blood Count 9.3 K/mm3 (4.4-11.0)
[2021-08-31 12:32] LABS: ALB/GLOB Ratio 1.3 RATIO (0.9-2.4); AST(SGOT) 45 U/L (15-37); Alanine Aminotransfer ALT/SGPT 51 U/L (16-61); Albumin, Serum 4.2 g/dL (3.2-5.0); Alkaline Phosphatase 65 U/L (45-117); Anion Gap 5 (5-15); BUN 13 mg/dL (7-18); BUN/Creat Ratio 14.3 RATIO (10-20); CRP 5.25 mg/L (0.0-3.0); Calcium,Total 9.1 mg/dL (8.5-10.1); Chloride 107 mmol/L (98-107); Creatinine, Serum 0.91 mg/dL (0.70-1.30); EST Glomerular Filtration Rate 97 mL/min (>60); Est Glom Filt Rate - Afr Amer 118 mL/min (>60); Globulin 3.3 g/dL (2.2-4.2); Glucose 97 mg/dL (74-106); Potassium 4.2 mmol/L (3.5-5.1); Protein, Total 7.5 g/dL (6.4-8.2); Rheumatoid Factor < 10.0 IU/mL (<15); Sodium Level 141 mmol/L (136-145)
[2021-08-31 13:03] LABS: Hepatitis B Surface Antibody Reactive; Hepatitis B Surface Antigen Non-Reactive (Nonreactive); Hepatitis C Antibody Non-Reactive (Nonreactive)
[2021-09-01 14:02] LABS: ANTINUCLEAR ANTIBODIES DIRECT Negative (Negative)
[2021-09-02 16:09] LABS: QNTFERON TB Mitogen Value > 10.00 IU/mL (.); QNTFERON TB Nil Value 0.07 IU/mL (.); QNTFERON TB1+ Ag Value 0.07 IU/mL (.); QNTFERON TB2+ Ag Value 0.08 IU/mL (.)
[2021-09-02 21:41] LABS: CCP IgG Antibodies 6 units (0-19); QNTIFERON TB Positive Criteria Negative (Negative)
== END ==
PROVIDERS: PCP Family Medicine; Referring Provider Internal Medicine Rheumatology; Visit Provider Internal Medicine Rheumatology
DX: M06.09 Rheumatoid arthritis without rheumatoid factor, multiple sites (principal); Z79.899 Other long term (current) drug therapy; M96.1 Postlaminectomy syndrome, not elsewhere classified; K76.0 Fatty (change of) liver, not elsewhere classified; Q21.0 Ventricular septal defect; G43.909 Migraine, unspecified, not intractable, without status migrainosus; K58.2 Mixed irritable bowel syndrome; H93.13 Tinnitus, bilateral
CPT/HCPCS: 36415; 71046; 80053; 85025; 85652; 86038; 86140; 86200; 86431; 86480; 86706; 86803; 87340

== ENCOUNTER → 2022-01-13 | Outpatient (CLI) | payer OTHER, SELFPAY ==
[2022-01-13 17:28] LABS: Absolute Lymphocyte Count 2.94 X10^3/uL (0.83-4.51); Absolute Neutrophil Count 3.7 X10^3/uL (2.0-7.7); Basophil# 0.04 X10^3/uL; Basophil% 0.5 % (0-1); Eosinophil# 0.12 X10^3/uL; Eosinophils% 1.5 % (0-5); Hematocrit 42.1 % (40-54); Hemoglobin 15.1 g/dL (13.0-16.5); Lymphocyte # 2.94 X10^3/ul (0.83-4.51); Lymphocyte % 37.4 % (19-41); Mean Corp Hgb Conc 35.9 g/dL (32-36); Mean Corpuscular Hgb 29.8 pg (27.0-32.0); Mean Platelet Vol. 10.4 fl (6.2-12.0); Monocyte# 1.03 X10^3/uL; Monocyte% 13.1 % (0-10); NRBC Flagged by Analyzer 0 % (0-5); Neutrophil # 3.72 X10^3/uL (2.7-7.7); Neutrophil % 47.2 % (47-70); Platelet Count 274 K/mm3 (150-450); RBC Distribution Width CV 12.5 % (11.6-14.6); RBC Distribution Width SD 37.7 fl (35.1-43.9); Red Blood Count 5.07 M/mm3 (4.6-6.2); White Blood Count 7.9 K/mm3 (4.4-11.0)
[2022-01-13 18:12] LABS: ALB/GLOB Ratio 1.4 RATIO (0.9-2.4); AST(SGOT) 56 U/L (15-37); Alanine Aminotransfer ALT/SGPT 65 U/L (16-61); Albumin, Serum 4.3 g/dL (3.2-5.0); Alkaline Phosphatase 60 U/L (45-117); Anion Gap 3 (5-15); BUN 16 mg/dL (7-18); BUN/Creat Ratio 13.8 RATIO (10-20); Calcium,Total 8.4 mg/dL (8.5-10.1); Chloride 108 mmol/L (98-107); Creatinine, Serum 1.16 mg/dL (0.70-1.30); EST Glomerular Filtration Rate 73 mL/min (>60); Est Glom Filt Rate - Afr Amer 89 mL/min (>60); Glucose 104 mg/dL (74-106); Potassium 3.9 mmol/L (3.5-5.1); Protein, Total 7.3 g/dL (6.4-8.2); Sodium Level 139 mmol/L (136-145)
== END | disposition home or self-care (01) ==
LOC: MTLAB 16:53
PROVIDERS: PCP Family Medicine; Referring Provider Internal Medicine Rheumatology; Visit Provider Internal Medicine Rheumatology
DX: M06.09 Rheumatoid arthritis without rheumatoid factor, multiple sites (principal); Z79.899 Other long term (current) drug therapy; M96.1 Postlaminectomy syndrome, not elsewhere classified; K76.0 Fatty (change of) liver, not elsewhere classified; Q21.0 Ventricular septal defect; G43.909 Migraine, unspecified, not intractable, without status migrainosus; K58.2 Mixed irritable bowel syndrome; H93.13 Tinnitus, bilateral
CPT/HCPCS: 36415; 80053; 85025

== ENCOUNTER → 2022-06-10 | Outpatient (CLI) | payer OTHER, SELFPAY ==
[2022-06-10 18:01] LABS: Absolute Lymphocyte Count 3.12 X10^3/uL (0.83-4.51); Absolute Neutrophil Count 5.4 X10^3/uL (2.0-7.7); Basophil# 0.04 X10^3/uL; Basophil% 0.4 % (0-1); Eosinophil# 0.13 X10^3/uL; Eosinophils% 1.3 % (0-5); Hematocrit 44.9 % (40-54); Hemoglobin 15.5 g/dL (13.0-16.5); Lymphocyte # 3.12 X10^3/ul (0.83-4.51); Lymphocyte % 32.3 % (19-41); Mean Corp Hgb Conc 34.5 g/dL (32-36); Mean Corpuscular Hgb 29.5 pg (27.0-32.0); Mean Corpuscular Volume 85.4 fL (80-94); Monocyte# 0.96 X10^3/uL; Monocyte% 9.9 % (0-10); NRBC Flagged by Analyzer 0 % (0-5); Neutrophil # 5.39 X10^3/uL (2.7-7.7); Neutrophil % 55.9 % (47-70); Platelet Count 260 K/mm3 (150-450); RBC Distribution Width CV 12.5 % (11.6-14.6); RBC Distribution Width SD 38.7 fl (35.1-43.9); Red Blood Count 5.26 M/mm3 (4.6-6.2); White Blood Count 9.7 K/mm3 (4.4-11.0)
[2022-06-10 18:22] LABS: ALB/GLOB Ratio 1.6 RATIO (0.9-2.4); AST(SGOT) 44 U/L (15-37); Alanine Aminotransfer ALT/SGPT 59 U/L (16-61); Albumin, Serum 4.6 g/dL (3.2-5.0); Alkaline Phosphatase 49 U/L (45-117); Anion Gap 9 (5-15); BUN 14 mg/dL (7-18); BUN/Creat Ratio 13.1 RATIO (10-20); Calcium,Total 9.3 mg/dL (8.5-10.1); Chloride 105 mmol/L (98-107); Creatinine, Serum 1.07 mg/dL (0.70-1.30); EST Glomerular Filtration Rate 80 mL/min (>60); Est Glom Filt Rate - Afr Amer 97 mL/min (>60); Globulin 2.9 g/dL (2.2-4.2); Glucose 85 mg/dL (74-106); Potassium 3.7 mmol/L (3.5-5.1); Protein, Total 7.5 g/dL (6.4-8.2); Sodium Level 143 mmol/L (136-145)
== END | disposition home or self-care (01) ==
LOC: MTLAB 16:48
PROVIDERS: PCP Family Medicine; Referring Provider Internal Medicine Rheumatology; Visit Provider Internal Medicine Rheumatology
DX: M06.09 Rheumatoid arthritis without rheumatoid factor, multiple sites (principal); Z79.899 Other long term (current) drug therapy; M96.1 Postlaminectomy syndrome, not elsewhere classified; K76.0 Fatty (change of) liver, not elsewhere classified; Q21.0 Ventricular septal defect; G43.909 Migraine, unspecified, not intractable, without status migrainosus; K58.2 Mixed irritable bowel syndrome; H93.13 Tinnitus, bilateral
CPT/HCPCS: 36415; 80053; 85025

== ENCOUNTER → 2022-10-10 | Outpatient (CLI) | payer OTHER, SELFPAY ==
[2022-10-10 17:50] LABS: Absolute Neutrophil Count 4.7 X10^3/uL (2.0-7.7); Basophil# 0.04 X10^3/uL; Basophil% 0.4 % (0-1); Eosinophil# 0.14 X10^3/uL; Eosinophils% 1.5 % (0-5); Hematocrit 43.6 % (40-54); Hemoglobin 15.2 g/dL (13.0-16.5); Lymphocyte % 35.1 % (19-41); Mean Corp Hgb Conc 34.9 g/dL (32-36); Mean Corpuscular Hgb 29.8 pg (27.0-32.0); Mean Corpuscular Volume 85.5 fL (80-94); Mean Platelet Vol. 10.4 fl (6.2-12.0); Monocyte# 1.16 X10^3/uL; Monocyte% 12.3 % (0-10); NRBC Flagged by Analyzer 0 % (0-5); Neutrophil # 4.72 X10^3/uL (2.7-7.7); Neutrophil % 50.3 % (47-70); Platelet Count 273 K/mm3 (150-450); RBC Distribution Width CV 12.6 % (11.6-14.6); RBC Distribution Width SD 38.9 fl (35.1-43.9); White Blood Count 9.4 K/mm3 (4.4-11.0)
[2022-10-10 18:20] LABS: ALB/GLOB Ratio 1.3 RATIO (0.9-2.4); AST(SGOT) 35 U/L (15-37); Alanine Aminotransfer ALT/SGPT 50 U/L (16-61); Albumin, Serum 4.2 g/dL (3.2-5.0); Alkaline Phosphatase 56 U/L (45-117); Anion Gap 7 (5-15); BUN 12 mg/dL (7-18); BUN/Creat Ratio 11.7 RATIO (10-20); Chloride 104 mmol/L (98-107); Creatinine, Serum 1.03 mg/dL (0.70-1.30); EST Glomerular Filtration Rate 84 mL/min (>60); Est Glom Filt Rate - Afr Amer 101 mL/min (>60); Globulin 3.2 g/dL (2.2-4.2); Glucose 94 mg/dL (74-106); Potassium 3.7 mmol/L (3.5-5.1); Protein, Total 7.4 g/dL (6.4-8.2); Sodium Level 140 mmol/L (136-145)
== END | disposition home or self-care (01) ==
LOC: MTLAB 16:22
PROVIDERS: PCP Family Medicine; Referring Provider Internal Medicine Rheumatology; Visit Provider Internal Medicine Rheumatology
DX: M06.00 Rheumatoid arthritis without rheumatoid factor, unspecified site (principal); Z79.899 Other long term (current) drug therapy; M96.1 Postlaminectomy syndrome, not elsewhere classified; K76.0 Fatty (change of) liver, not elsewhere classified; Q21.0 Ventricular septal defect; G43.909 Migraine, unspecified, not intractable, without status migrainosus; K58.2 Mixed irritable bowel syndrome; H93.13 Tinnitus, bilateral
CPT/HCPCS: 36415; 80053; 85025

== ENCOUNTER → 2022-12-28 | Outpatient (CLI) | payer OTHER, SELFPAY ==
[2022-12-28 10:45] LABS: Absolute Lymphocyte Count 2.19 X10^3/uL (0.83-4.51); Absolute Neutrophil Count 3.4 X10^3/uL (2.0-7.7); Basophil# 0.04 X10^3/uL; Basophil% 0.6 % (0-1); Eosinophil# 0.26 X10^3/uL; Eosinophils% 3.9 % (0-5); Hematocrit 44.5 % (40-54); Hemoglobin 15.7 g/dL (13.0-16.5); Lymphocyte # 2.19 X10^3/ul (0.83-4.51); Lymphocyte % 32.7 % (19-41); Mean Corp Hgb Conc 35.3 g/dL (32-36); Mean Corpuscular Volume 85.1 fL (80-94); Mean Platelet Vol. 10.3 fl (6.2-12.0); Monocyte# 0.78 X10^3/uL; Monocyte% 11.7 % (0-10); NRBC Flagged by Analyzer 0 % (0-5); Neutrophil % 50.8 % (47-70); Platelet Count 241 K/mm3 (150-450); RBC Distribution Width CV 12.5 % (11.6-14.6); RBC Distribution Width SD 38.5 fl (35.1-43.9); Red Blood Count 5.23 M/mm3 (4.6-6.2); White Blood Count 6.7 K/mm3 (4.4-11.0)
[2022-12-28 11:06] LABS: ALB/GLOB Ratio 1.5 RATIO (0.9-2.4); AST(SGOT) 66 U/L (15-37); Alanine Aminotransfer ALT/SGPT 65 U/L (16-61); Albumin, Serum 4.1 g/dL (3.2-5.0); Alkaline Phosphatase 50 U/L (45-117); Anion Gap 5 (5-15); BUN 14 mg/dL (7-18); BUN/Creat Ratio 14.2 RATIO (10-20); Chloride 107 mmol/L (98-107); Creatinine, Serum 0.98 mg/dL (0.70-1.30); EST Glomerular Filtration Rate 88 mL/min (>60); Est Glom Filt Rate - Afr Amer 107 mL/min (>60); Globulin 2.7 g/dL (2.2-4.2); Glucose 120 mg/dL (74-106); Potassium 3.9 mmol/L (3.5-5.1); Protein, Total 6.8 g/dL (6.4-8.2); Sodium Level 138 mmol/L (136-145)
== END | disposition home or self-care (01) ==
LOC: MTLAB 08:05
PROVIDERS: PCP Family Medicine; Referring Provider Internal Medicine Rheumatology; Visit Provider Internal Medicine Rheumatology
DX: M06.09 Rheumatoid arthritis without rheumatoid factor, multiple sites (principal); Z79.899 Other long term (current) drug therapy
CPT/HCPCS: 36415; 80053; 85025

== ENCOUNTER → 2023-03-23 | Outpatient (CLI) | payer OTHER, SELFPAY ==
[2023-03-23 17:41] LABS: Absolute Neutrophil Count 5.6 X10^3/uL (2.0-7.7); Basophil# 0.05 X10^3/uL; Basophil% 0.5 % (0-1); Eosinophil# 0.21 X10^3/uL; Hematocrit 42.6 % (40-54); Hemoglobin 14.9 g/dL (13.0-16.5); Lymphocyte % 32.3 % (19-41); Mean Corpuscular Hgb 29.3 pg (27.0-32.0); Mean Corpuscular Volume 83.9 fL (80-94); Mean Platelet Vol. 10.2 fl (6.2-12.0); Monocyte# 1.18 X10^3/uL; Monocyte% 11.2 % (0-10); NRBC Flagged by Analyzer 0 % (0-5); Neutrophil # 5.64 X10^3/uL (2.7-7.7); Neutrophil % 53.6 % (47-70); Platelet Count 260 K/mm3 (150-450); RBC Distribution Width CV 12.8 % (11.6-14.6); RBC Distribution Width SD 38.9 fl (35.1-43.9); Red Blood Count 5.08 M/mm3 (4.6-6.2); White Blood Count 10.5 K/mm3 (4.4-11.0)
[2023-03-23 18:19] LABS: ALB/GLOB Ratio 1.3 RATIO (0.9-2.4); AST(SGOT) 40 U/L (15-37); Alanine Aminotransfer ALT/SGPT 52 U/L (16-61); Albumin, Serum 4.2 g/dL (3.2-5.0); Alkaline Phosphatase 57 U/L (45-117); Anion Gap 6 (5-15); BUN 18 mg/dL (7-18); BUN/Creat Ratio 14.3 RATIO (10-20); Calcium,Total 9.1 mg/dL (8.5-10.1); Chloride 106 mmol/L (98-107); Creatinine, Serum 1.26 mg/dL (0.70-1.30); EST Glomerular Filtration Rate 66 mL/min (>60); Est Glom Filt Rate - Afr Amer 80 mL/min (>60); Globulin 3.2 g/dL (2.2-4.2); Glucose 103 mg/dL (74-106); Potassium 3.6 mmol/L (3.5-5.1); Protein, Total 7.4 g/dL (6.4-8.2); Sodium Level 140 mmol/L (136-145)
== END | disposition home or self-care (01) ==
LOC: MTLAB 16:36
PROVIDERS: PCP Family Medicine; Referring Provider Internal Medicine Rheumatology; Visit Provider Internal Medicine Rheumatology
DX: M06.09 Rheumatoid arthritis without rheumatoid factor, multiple sites (principal); Z79.899 Other long term (current) drug therapy
CPT/HCPCS: 36415; 80053; 85025

== ENCOUNTER → 2023-06-16 | Outpatient (CLI) | payer OTHER, SELFPAY ==
[2023-06-16 17:33] LABS: Absolute Lymphocyte Count 3.55 X10^3/uL (0.83-4.51); Absolute Neutrophil Count 4.4 X10^3/uL (2.0-7.7); Basophil# 0.04 X10^3/uL; Basophil% 0.4 % (0-1); Eosinophil# 0.22 X10^3/uL; Eosinophils% 2.4 % (0-5); Hematocrit 46.5 % (40-54); Hemoglobin 16.3 g/dL (13.0-16.5); Lymphocyte # 3.55 X10^3/ul (0.83-4.51); Mean Corp Hgb Conc 35.1 g/dL (32-36); Mean Corpuscular Volume 85.6 fL (80-94); Mean Platelet Vol. 10.6 fl (6.2-12.0); Monocyte# 0.82 X10^3/uL; NRBC Flagged by Analyzer 0 % (0-5); Neutrophil # 4.44 X10^3/uL (2.7-7.7); Neutrophil % 48.8 % (47-70); Platelet Count 296 K/mm3 (150-450); RBC Distribution Width CV 12.2 % (11.6-14.6); Red Blood Count 5.43 M/mm3 (4.6-6.2); White Blood Count 9.1 K/mm3 (4.4-11.0)
[2023-06-16 17:52] LABS: ALB/GLOB Ratio 1.3 RATIO (0.9-2.4); AST(SGOT) 49 U/L (15-37); Alanine Aminotransfer ALT/SGPT 63 U/L (16-61); Albumin, Serum 4.6 g/dL (3.2-5.0); Alkaline Phosphatase 53 U/L (45-117); Anion Gap 4 (5-15); BUN 22 mg/dL (7-18); BUN/Creat Ratio 21.2 RATIO (10-20); Calcium,Total 9.6 mg/dL (8.5-10.1); Chloride 104 mmol/L (98-107); Creatinine, Serum 1.04 mg/dL (0.70-1.30); EST Glomerular Filtration Rate 83 mL/min (>60); Est Glom Filt Rate - Afr Amer 100 mL/min (>60); Globulin 3.5 g/dL (2.2-4.2); Glucose 104 mg/dL (74-106); Protein, Total 8.1 g/dL (6.4-8.2); Sodium Level 138 mmol/L (136-145)
== END | disposition home or self-care (01) ==
LOC: MTLAB 13:42
PROVIDERS: PCP Family Medicine; Referring Provider Internal Medicine Rheumatology; Visit Provider Internal Medicine Rheumatology
DX: M06.09 Rheumatoid arthritis without rheumatoid factor, multiple sites (principal); Z79.899 Other long term (current) drug therapy
CPT/HCPCS: 36415; 80053; 85025

== ENCOUNTER → 2023-10-10 | Outpatient (CLI) | payer OTHER, SELFPAY ==
--- OUTSIDE RECORDS SUMMARY | 2023-10-10 16:57 | XMS RPT_ITS | CCD ---
Author Name Unknown Address [address] [place] [address] Organization [facility] Results Test Name Value Interpretation Reference Range Facil ity Summary Purpose Family History No Family History Records FoundNo Family History Records Found Advance Directives No Advanced Directives Records FoundNo Advanced Directives Records Found Additional Source Comments (unrecognized sect ion and content) No Status Records FoundNo Status Records Found INFORMATION SOURCE (unrecogn ized section and content) DATE CREATED AUTHOR AUTHOR'S SEAN ATION 08/26/2021 [facility] dical Specialist FOR RECORDS PERTAINING TO PATIENTS WHO ARE OR HAVE BEEN ENROLLED IN A CHEMICAL DEPENDENCY/SUBSTANCEABUSE PROGRAM, SOME INFORMATION MAY BE OMITTED. This clinical summary was aggregated from multiple sources. Caution should be exercised in using it in the provision of clinical care. This summary normalizes information from multiple sources, and as a consequence, information in this document may materially change the coding, format and clinical context of patient data. In addition, data may be omitted in some cases. CLINICAL DECISIONS SHOULD BE BASED ON THE PRIMARY CLINICAL RECORDS. [facility] [employer] [facility]. provides no warranty or guarantee of the accuracy or completeness of information in this document.
[2023-10-10 17:58] LABS: Absolute Lymphocyte Count 2.91 X10^3/uL (0.83-4.51); Absolute Neutrophil Count 3.9 X10^3/uL (2.0-7.7); Basophil# 0.06 X10^3/uL; Basophil% 0.7 % (0-1); Eosinophils% 2.5 % (0-5); Hemoglobin 14.6 g/dL (13.0-16.5); Lymphocyte # 2.91 X10^3/ul (0.83-4.51); Lymphocyte % 36.1 % (19-41); Mean Corpuscular Hgb 28.7 pg (27.0-32.0); Mean Corpuscular Volume 84.6 fL (80-94); Mean Platelet Vol. 10.3 fl (6.2-12.0); Monocyte# 0.95 X10^3/uL; Monocyte% 11.8 % (0-10); NRBC Flagged by Analyzer 0 % (0-5); Neutrophil # 3.92 X10^3/uL (2.7-7.7); Neutrophil % 48.8 % (47-70); Platelet Count 283 K/mm3 (150-450); RBC Distribution Width CV 12.6 % (11.6-14.6); RBC Distribution Width SD 38.6 fl (35.1-43.9); Red Blood Count 5.08 M/mm3 (4.6-6.2); White Blood Count 8.1 K/mm3 (4.4-11.0)
[2023-10-10 18:10] LABS: ALB/GLOB Ratio 1.4 RATIO (0.9-2.4); AST(SGOT) 42 U/L (15-37); Alanine Aminotransfer ALT/SGPT 51 U/L (16-61); Albumin, Serum 4.3 g/dL (3.2-5.0); Alkaline Phosphatase 56 U/L (45-117); Anion Gap 6 (5-15); BUN 21 mg/dL (7-18); BUN/Creat Ratio 20.8 RATIO (10-20); Calcium,Total 9.5 mg/dL (8.5-10.1); Chloride 109 mmol/L (98-107); Creatinine, Serum 1.01 mg/dL (0.70-1.30); EST Glomerular Filtration Rate 85 mL/min (>60); Est Glom Filt Rate - Afr Amer 103 mL/min (>60); Globulin 3.1 g/dL (2.2-4.2); Glucose 83 mg/dL (74-106); Protein, Total 7.4 g/dL (6.4-8.2); Sodium Level 141 mmol/L (136-145)
== END | disposition home or self-care (01) ==
LOC: MTLAB 16:50
PROVIDERS: PCP Family Medicine; Referring Provider Internal Medicine Rheumatology; Visit Provider Internal Medicine Rheumatology
DX: M06.09 Rheumatoid arthritis without rheumatoid factor, multiple sites (principal); Z79.899 Other long term (current) drug therapy; K76.0 Fatty (change of) liver, not elsewhere classified; Q21.0 Ventricular septal defect
CPT/HCPCS: 36415; 80053; 85025

== ENCOUNTER → 2023-10-11 | Outpatient (CLI) | payer OTHER, SELFPAY ==
--- OUTSIDE RECORDS SUMMARY | 2023-10-11 08:26 | XMS RPT_ITS | CCD ---
Author Name Unknown Address [address] [place] [address] Organization [facility] Results Test Name Value Interpretation [...] DATE CREATED AUTHOR AUTHOR'S SEAN ATION 08/26/2021 [facility] dical Specialist FOR RECORDS PERTAINING TO PATIENTS [...] BE BASED ON THE PRIMARY CLINICAL RECORDS. [facility] [employer] [facility]. provides no warranty or guarantee of the accuracy or completeness of information in this document.
[2023-10-17 08:12] LABS: QNTFERON TB Mitogen Value > 10.00 IU/mL (.); QNTFERON TB Nil Value 0 IU/mL (.); QNTFERON TB1+ Ag Value 0 IU/mL (.); QNTFERON TB2+ Ag Value 0 IU/mL (.); QNTIFERON TB Positive Criteria Negative (Negative)
== END | disposition home or self-care (01) ==
PROVIDERS: PCP Family Medicine; Referring Provider Internal Medicine Rheumatology; Visit Provider Internal Medicine Rheumatology
DX: M06.00 Rheumatoid arthritis without rheumatoid factor, unspecified site (principal); Z79.899 Other long term (current) drug therapy
CPT/HCPCS: 36415; 86480

== ENCOUNTER → 2024-03-08 | Outpatient (CLI) | payer OTHER, SELFPAY ==
[2024-03-08 12:22] LABS: Absolute Lymphocyte Count 2.81 X10^3/uL (0.83-4.51); Absolute Neutrophil Count 3.7 X10^3/uL (2.0-7.7); Basophil# 0.05 X10^3/uL; Basophil% 0.7 % (0-1); Eosinophils% 2.6 % (0-5); Hematocrit 43.1 % (40-54); Lymphocyte # 2.81 X10^3/ul (0.83-4.51); Lymphocyte % 36.8 % (19-41); Mean Corp Hgb Conc 34.8 g/dL (32-36); Mean Corpuscular Hgb 29.5 pg (27.0-32.0); Mean Corpuscular Volume 84.8 fL (80-94); Mean Platelet Vol. 11.1 fl (6.2-12.0); Monocyte# 0.81 X10^3/uL; Monocyte% 10.6 % (0-10); NRBC Flagged by Analyzer 0 % (0-5); Neutrophil # 3.74 X10^3/uL (2.7-7.7); Platelet Count 267 K/mm3 (150-450); RBC Distribution Width CV 12.5 % (11.6-14.6); RBC Distribution Width SD 38.5 fl (35.1-43.9); Red Blood Count 5.08 M/mm3 (4.6-6.2); White Blood Count 7.6 K/mm3 (4.4-11.0)
[2024-03-08 12:48] LABS: ALB/GLOB Ratio 1.5 RATIO (0.9-2.4); AST(SGOT) 41 U/L (15-37); Alanine Aminotransfer ALT/SGPT 53 U/L (16-61); Albumin, Serum 4.4 g/dL (3.2-5.0); Alkaline Phosphatase 51 U/L (45-117); Anion Gap 8 (5-15); BUN 19 mg/dL (7-18); BUN/Creat Ratio 20.3 RATIO (10-20); Calcium,Total 9.5 mg/dL (8.5-10.1); Chloride 106 mmol/L (98-107); Creatinine, Serum 0.94 mg/dL (0.70-1.30); EST Glomerular Filtration Rate 93 mL/min (>60); Est Glom Filt Rate - Afr Amer 112 mL/min (>60); Glucose 108 mg/dL (74-106); Potassium 3.7 mmol/L (3.5-5.1); Protein, Total 7.4 g/dL (6.4-8.2); Sodium Level 140 mmol/L (136-145)
== END | disposition home or self-care (01) ==
PROVIDERS: PCP Family Medicine; Referring Provider Internal Medicine Rheumatology; Visit Provider Internal Medicine Rheumatology
DX: M06.09 Rheumatoid arthritis without rheumatoid factor, multiple sites (principal); Z79.899 Other long term (current) drug therapy
CPT/HCPCS: 36415; 80053; 85025

== ENCOUNTER → 2024-06-27 | Outpatient (CLI) | payer OTHER, SELFPAY ==
[2024-06-27 18:06] LABS: Absolute Lymphocyte Count 3.66 X10^3/uL (0.83-4.51); Absolute Neutrophil Count 5.3 X10^3/uL (2.0-7.7); Basophil# 0.05 X10^3/uL; Basophil% 0.5 % (0-1); Eosinophil# 0.24 X10^3/uL; Eosinophils% 2.3 % (0-5); Hematocrit 45.4 % (40-54); Hemoglobin 15.6 g/dL (13.0-16.5); Lymphocyte # 3.66 X10^3/ul (0.83-4.51); Lymphocyte % 35.8 % (19-41); Mean Corp Hgb Conc 34.4 g/dL (32-36); Mean Corpuscular Hgb 28.6 pg (27.0-32.0); Mean Corpuscular Volume 83.3 fL (80-94); Monocyte% 8.8 % (0-10); NRBC Flagged by Analyzer 0 % (0-5); Neutrophil # 5.32 X10^3/uL (2.7-7.7); Neutrophil % 52.1 % (47-70); Platelet Count 281 K/mm3 (150-450); RBC Distribution Width CV 12.1 % (11.6-14.6); Red Blood Count 5.45 M/mm3 (4.6-6.2); White Blood Count 10.2 K/mm3 (4.4-11.0)
[2024-06-27 18:33] LABS: ALB/GLOB Ratio 1.5 RATIO (0.9-2.4); AST(SGOT) 44 U/L (15-37); Alanine Aminotransfer ALT/SGPT 48 U/L (16-61); Albumin, Serum 4.5 g/dL (3.2-5.0); Alkaline Phosphatase 54 U/L (45-117); Anion Gap 8 (5-15); BUN 13 mg/dL (7-18); BUN/Creat Ratio 13.3 RATIO (10-20); Calcium,Total 9.4 mg/dL (8.5-10.1); Chloride 106 mmol/L (98-107); Creatinine, Serum 0.98 mg/dL (0.70-1.30); EST Glomerular Filtration Rate 88 mL/min (>60); Est Glom Filt Rate - Afr Amer 107 mL/min (>60); Globulin 3.1 g/dL (2.2-4.2); Glucose 94 mg/dL (74-106); Potassium 3.4 mmol/L (3.5-5.1); Protein, Total 7.6 g/dL (6.4-8.2); Sodium Level 139 mmol/L (136-145)
== END | disposition home or self-care (01) ==
PROVIDERS: PCP Family Medicine; Referring Provider Internal Medicine Rheumatology; Visit Provider Internal Medicine Rheumatology
DX: M06.09 Rheumatoid arthritis without rheumatoid factor, multiple sites (principal); Z79.899 Other long term (current) drug therapy; M96.1 Postlaminectomy syndrome, not elsewhere classified
CPT/HCPCS: 36415; 80053; 85025

== ENCOUNTER → 2024-07-10 | Outpatient (CLI) | payer OTHER, SELFPAY ==
[2024-07-10 11:10] LABS: Pathologist Comment May follow
[2024-07-10 11:46] LABS: Synovial Fld Mononuclear WBC # 0.153 10^3/ul; Synovial Fld Mononuclear WBC % 93.3 %; Synovial Fld Polynuclear WBC # 0.011 10^3/uL; Synovial Fld Polynuclear WBC % 6.7 %
[2024-07-10 13:40] LABS: Lymph 54 %; Monocyte /Synovial Fluid 22 %; Other Cell /Synovial Fluid 24 %
[2024-07-10 13:51] LABS: AUTO B FLUID DILUENT BKGD CT WBC <0.1 RBC <0.01 (W<.1,R<.01); CRYSTALS, BODY FLUID See PATH REV; Source- Body Fluid SYNOVIAL
[2024-07-10 13:52] LABS: Appearance /Synovial Fluid Clear (CLEAR); Color / Synovial Fluid Yellow (Pale Yellow); RBC /Synovial Fluid 29 /mm3 (0); Source / Synovial Fluid LEFT KNEE
[2024-07-10 13:53] LABS: Body Fluid QC Type(s) BF2Q,BF3Q
[2024-07-11 09:45] LABS: Pathologist Review Reviewed
== END | disposition home or self-care (01) ==
PROVIDERS: PCP Family Medicine; Referring Provider Internal Medicine Rheumatology; Visit Provider Internal Medicine Rheumatology
DX: M06.09 Rheumatoid arthritis without rheumatoid factor, multiple sites (principal); M25.562 Pain in left knee; M96.1 Postlaminectomy syndrome, not elsewhere classified; K76.0 Fatty (change of) liver, not elsewhere classified; Q21.0 Ventricular septal defect; G43.909 Migraine, unspecified, not intractable, without status migrainosus; K58.2 Mixed irritable bowel syndrome; H93.13 Tinnitus, bilateral
CPT/HCPCS: 87070; 87075; 87205; 89050; 89051; 89060

== ENCOUNTER → 2024-10-22 | Outpatient (CLI) | payer OTHER, SELFPAY ==
[2024-10-22 17:48] LABS: ALB/GLOB Ratio 1.4 RATIO (0.9-2.4); AST(SGOT) 52 U/L (15-37); Alanine Aminotransfer ALT/SGPT 50 U/L (16-61); Albumin, Serum 4.2 g/dL (3.2-5.0); Alkaline Phosphatase 73 U/L (45-117); Anion Gap 8 (5-15); BUN 12 mg/dL (7-18); BUN/Creat Ratio 12.9 RATIO (10-20); Chloride 104 mmol/L (98-107); Creatinine, Serum 0.93 mg/dL (0.70-1.30); EST Glomerular Filtration Rate 93 mL/min (>60); Est Glom Filt Rate - Afr Amer 113 mL/min (>60); Globulin 3.1 g/dL (2.2-4.2); Glucose 103 mg/dL (74-106); Potassium 3.9 mmol/L (3.5-5.1); Protein, Total 7.3 g/dL (6.4-8.2); Sodium Level 141 mmol/L (136-145)
[2024-10-22 17:50] LABS: Absolute Lymphocyte Count 1.98 X10^3/uL (0.83-4.51); Absolute Neutrophil Count 4.3 X10^3/uL (2.0-7.7); Basophil# 0.05 X10^3/uL; Basophil% 0.7 % (0-1); Eosinophil# 0.15 X10^3/uL; Hematocrit 42.4 % (40-54); Hemoglobin 14.1 g/dL (13.0-16.5); Lymphocyte # 1.98 X10^3/ul (0.83-4.51); Mean Corp Hgb Conc 33.3 g/dL (32-36); Mean Corpuscular Volume 84.1 fL (80-94); Mean Platelet Vol. 10.2 fl (6.2-12.0); Monocyte# 0.82 X10^3/uL; Monocyte% 11.2 % (0-10); NRBC Flagged by Analyzer 0 % (0-5); Neutrophil % 58.8 % (47-70); Platelet Count 288 K/mm3 (150-450); RBC Distribution Width CV 13.2 % (11.6-14.6); RBC Distribution Width SD 40.7 fl (35.1-43.9); Red Blood Count 5.04 M/mm3 (4.6-6.2); White Blood Count 7.3 K/mm3 (4.4-11.0)
== END | disposition home or self-care (01) ==
PROVIDERS: PCP Family Medicine; Referring Provider Internal Medicine Rheumatology; Visit Provider Internal Medicine Rheumatology
DX: M06.09 Rheumatoid arthritis without rheumatoid factor, multiple sites (principal); Z79.899 Other long term (current) drug therapy
CPT/HCPCS: 36415; 80053; 85025

== ENCOUNTER → 2025-04-18 | Outpatient (CLI) | payer OTHER, SELFPAY ==
[2025-04-18 18:02] LABS: Hematocrit 42.7 % (40-54); Hemoglobin 15.1 g/dL (13.0-16.5); Immature Granulocytes Count 0.020 X10^3/uL (0.0-0.0); Mean Corp Hgb Conc 35.4 g/dL (32-36); Mean Corpuscular Volume 83.6 fL (80-94); Mean Platelet Vol. 10.8 fl (6.2-12.0); NRBC Flagged by Analyzer 0 % (0-5); Platelet Count 269 K/mm3 (150-450); RBC Distribution Width CV 12.7 % (11.6-14.6); RBC Distribution Width SD 38.6 fl (35.1-43.9); Red Blood Count 5.11 M/mm3 (4.6-6.2); White Blood Count 7.7 K/mm3 (4.4-11.0)
[2025-04-18 18:28] LABS: AST(SGOT) 37 U/L (<=37); Alanine Aminotransfer ALT/SGPT 37 U/L (<=46); Albumin, Serum 4.6 g/dL (3.5-5.0); Alkaline Phosphatase 61 U/L (40-129); Anion Gap 13 (5-15); BUN 15 mg/dL (4-19); BUN/Creat Ratio 15.4 RATIO (10-20); Calcium,Total 9.2 mg/dL (7.6-11.0); Carbon Dioxide 24.7 mmol/L (21.0-32.0); Chloride 102 mmol/L (98-108); Globulin 2.2 g/dL (2.2-4.2); Glucose 110 mg/dL (70-99); Potassium 3.4 mmol/L (3.3-5.1)
== END | disposition home or self-care (01) ==
LOC: MTLAB 15:15
PROVIDERS: PCP Family Medicine; Referring Provider Internal Medicine Rheumatology; Visit Provider Internal Medicine Rheumatology
DX: M06.09 Rheumatoid arthritis without rheumatoid factor, multiple sites (principal); Z79.899 Other long term (current) drug therapy; M96.1 Postlaminectomy syndrome, not elsewhere classified; K76.0 Fatty (change of) liver, not elsewhere classified
CPT/HCPCS: 36415; 80053; 85025

== ENCOUNTER → 2025-07-04 | Outpatient (CLI) | payer OTHER, SELFPAY ==
[2025-07-04 12:35] LABS: Hematocrit 45.7 % (40-54); Hemoglobin 15.9 g/dL (13.0-16.5); Immature Granulocytes Count 0.040 X10^3/uL (0.0-0.0); Mean Corp Hgb Conc 34.8 g/dL (32-36); Mean Corpuscular Volume 84.9 fL (80-94); Mean Platelet Vol. 11.0 fl (6.2-12.0); NRBC Flagged by Analyzer 0 % (0-5); Platelet Count 255 K/mm3 (150-450); RBC Distribution Width CV 13.0 % (11.6-14.6); RBC Distribution Width SD 40.0 fl (35.1-43.9); Red Blood Count 5.38 M/mm3 (4.6-6.2); White Blood Count 6.9 K/mm3 (4.4-11.0)
[2025-07-04 13:07] LABS: AST(SGOT) 44 U/L (<=37); Alanine Aminotransfer ALT/SGPT 51 U/L (<=46); Albumin, Serum 4.5 g/dL (3.5-5.0); Alkaline Phosphatase 46 U/L (40-129); Anion Gap 11 (5-15); BUN 11 mg/dL (4-19); BUN/Creat Ratio 11.5 RATIO (10-20); Calcium,Total 9.0 mg/dL (7.6-11.0); Carbon Dioxide 26.3 mmol/L (21.0-32.0); Chloride 104 mmol/L (98-108); Globulin 2.2 g/dL (2.2-4.2); Glucose 113 mg/dL (70-99); Potassium 3.6 mmol/L (3.3-5.1)
== END | disposition home or self-care (01) ==
LOC: MTLAB 11:04
PROVIDERS: PCP Family Medicine; Referring Provider Internal Medicine Rheumatology; Visit Provider Internal Medicine Rheumatology
DX: M06.09 Rheumatoid arthritis without rheumatoid factor, multiple sites (principal); Z79.899 Other long term (current) drug therapy
CPT/HCPCS: 36415; 80053; 85025